=== PATIENT | male | born 1960 | race Caucasian/White ===

== ENCOUNTER 2019-09-30 16:05 | Outpatient (CLI) | payer BC, SELFPAY ==
[2019-09-30 18:39] LABS: Ferritin 159 ng/mL (26-388)
== END 2019-09-30 16:25 ==
PROVIDERS: PCP Nurse Practitioner Family; Visit Provider Nurse Practitioner
DX: M25.50 Pain in unspecified joint (principal)
CPT/HCPCS: 36415; 82728

== ENCOUNTER 2020-05-16 22:01 | Outpatient (REF) | payer BC, SELFPAY ==
[2020-05-16 19:02] LABS: HCT 43.5 % (40.0-50.0); HGB 14.7 g/dL (13.5-17.5); Mean Corp. HGB Concentration 33.8 g/dL (32.0-36.0); Mean Corpuscular Hemoglobin 31.6 pg (27.0-33.0); Mean Corpuscular Volume 93.5 fL (80-95); Mean Platelet Volume 10.5 fL (8.0-11.0); Platelet Count 289 x1000/uL (130-400); RBC 4.65 m/cumm (4.50-6.00); RBC Distribution Width 11.8 % (11.8-14.1); White Blood Cell Count 6.16 k/cumm (4.4-10.8)
[2020-05-16 19:37] LABS: Vitamin D 25 Total 22.3 ng/ml (30-100)
[2020-05-16 19:42] LABS: ALT 24 U/L (16-63); AST 14 U/L (15-37); Albumin 3.9 g/dL (3.4-5.0); Alkaline Phosphatase 73 U/L (46-116); Anion Gap 7.3 mmol/L (3-11); BUN 11 mg/dL (7-18); Bilirubin, Total 0.8 mg/dL (0.2-1.0); CO2 28.7 mmol/L (21.0-32.0); CREATININE 0.91 mg/dL (0.70-1.30); Calcium 8.9 mg/dL (8.5-10.1); Chloride 107 mmol/L (98-107); Glucose 94 mg/dL (74-106); Potassium 5.1 mmol/L (3.5-5.1); Sodium 143 mmol/L (136-145); Total Protein 6.7 g/dL (6.4-8.2); Vitamin B12 202 pg/mL (193-986)
== END 2020-05-16 22:21 ==
LOC: NCHCN 22:01
PROVIDERS: PCP Nurse Practitioner Family; Visit Provider Family Medicine
DX: R22.1 Localized swelling, mass and lump, neck (principal); R53.83 Other fatigue
CPT/HCPCS: 80053; 82306; 85027; 82607

== ENCOUNTER 2020-05-25 02:53 | Outpatient (CLI) | payer BC, SELFPAY ==
--- NOTE | 2020-05-25 | DI.US_ITS ---
EXAM: US THYROID CLINICAL HISTORY: NECK MASS, R22.1, SUSPECT IN THYROID RT LOBE TECHNIQUE: Ultrasound performed using standard protocol. COMPARISON: No exams were available for comparison FINDINGS: Thyroid ultrasounds performed according to the usual protocol. Right thyroid lobe measures 54 x 19 x 20 millimeters. Left thyroid lobe measures 41 x 12 x 16 millimeters. There is mass of the right thyroid lobe measuring 29 x 28 x 25 millimeters. This is mixed cystic and solid in composition and contains areas hyperechoic and hypoechoic solid echogenicity. The lesion is wider than tall has smooth margins and no echogenic foci. Utilizing the ACR TI-RADS guidelines, this is a TR 3 lesion. This is mildly suspicious with fine nee dle aspiration recommended for size greater than 2.5 cm. Accordingly with this lesion measuring 2.9 cm in greatest diameter, FNA is recommended. No other significant lesion identified. IMPRESSION: Fine needle aspiration recommended for TI-RADS TR 3 lesion, 2.9 cm in diameter in the right thyroid l obe. DATA REPOSITORY:
== END 2020-05-25 03:13 ==
PROVIDERS: PCP Nurse Practitioner Family; Visit Provider Family Medicine
DX: R22.1 Localized swelling, mass and lump, neck (principal); E07.9 Disorder of thyroid, unspecified
CPT/HCPCS: 76536

== ENCOUNTER 2020-07-04 16:32 | Outpatient (REF) | payer BC, SELFPAY ==
[2020-07-07 12:50] LABS: Patient Race White; SARS-CoV-2 RNA Undetected (Undetected); SARS-CoV-2 Specimen Source Nasal
== END 2020-07-04 16:52 ==
LOC: NCHCN 16:32
PROVIDERS: PCP Nurse Practitioner Family; Visit Provider Nurse Practitioner Family
DX: Z20.828 Contact with and (suspected) exposure to other viral communicable diseases (principal)
CPT/HCPCS: U0003

== ENCOUNTER 2020-07-27 01:13 | Outpatient (CLI) | payer BC, SELFPAY ==
[2020-07-27 17:11] LABS: TSH (W/Ref FT4) 1.42 uIU/mL (0.36-3.74)
== END 2020-07-27 01:33 ==
PROVIDERS: PCP Nurse Practitioner Family; Visit Provider Otolaryngology
DX: E04.1 Nontoxic single thyroid nodule (principal)
CPT/HCPCS: 36415; 84443

== ENCOUNTER 2020-08-23 18:36 | Outpatient (REF) | payer BC, SELFPAY ==
[2020-08-23 19:21] LABS: Vitamin B12 504 pg/mL (193-986)
[2020-08-25 04:41] LABS: Vitamin D 25 Total 58.7 ng/ml (30-100)
== END 2020-08-23 18:56 ==
LOC: NCHCN 18:36
PROVIDERS: PCP Nurse Practitioner Family; Visit Provider Nurse Practitioner Family
DX: E55.9 Vitamin D deficiency, unspecified (principal); R53.83 Other fatigue
CPT/HCPCS: 82306; 82607

== ENCOUNTER 2021-10-16 16:34 | Outpatient (REF) | payer BC, SELFPAY ==
[2021-10-16 18:32] LABS: HCT 46.2 % (40.0-50.0); HGB 15.5 g/dL (13.5-17.5); MCH 30.7 pg (27.0-33.0); MCHC 33.5 % (32.0-36.0); MCV 91.5 fL (80-95); MPV 10.5 fL (8.0-11.0); Platelet Count 328 10^3/uL (130-400); RBC 5.05 10^6/uL (4.36-5.78); RDW 11.4 % (11.8-14.1); RDW-SD 38.4 fL; WBC 7.67 10^3/uL (4.4-10.8)
[2021-10-16 19:14] LABS: Vitamin D 25 Total 24.4 ng/mL (30-100)
[2021-10-16 19:18] LABS: Vitamin B12 331 pg/mL (193-986)
== END 2021-10-16 16:35 | disposition home or self-care (01) ==
LOC: NCHCN 16:34
PROVIDERS: PCP Nurse Practitioner Family; Visit Provider Family Medicine
DX: E55.9 Vitamin D deficiency, unspecified (principal); E53.8 Deficiency of other specified B group vitamins
CPT/HCPCS: 82306; 85027; 82607

== ENCOUNTER 2023-11-08 18:15 | Outpatient (REF) | payer BC, SELFPAY ==
[2023-11-08 18:54] LABS: Hemoglobin A1C 5.1 % (<5.7)
[2023-11-08 19:17] LABS: Vitamin D 25 Total 31.2 ng/mL (30-100)
[2023-11-08 19:25] LABS: Calculated LDL 103 mg/dL (<100); Cholesterol 204 mg/dL (<200); HDL Cholesterol 48 mg/dL (40-60); TSH (W/Ref FT4) 2.45 uIU/mL (0.36-3.74); Triglyceride 266 mg/dL (<150); Vitamin B12 626 pg/mL (193-986)
== END 2023-11-08 18:16 | disposition home or self-care (01) ==
LOC: NCHCN 18:15
PROVIDERS: PCP Family Medicine; Visit Provider Family Medicine
DX: R53.83 Other fatigue (principal); E53.8 Deficiency of other specified B group vitamins; E55.9 Vitamin D deficiency, unspecified; R79.89 Other specified abnormal findings of blood chemistry; Z13.6 Encounter for screening for cardiovascular disorders; Z13.1 Encounter for screening for diabetes mellitus
CPT/HCPCS: 80061; 82306; 82607; 83036; 84443

== ENCOUNTER 2024-04-12 12:05 | Emergency (ER) | payer BC, SELFPAY ==
[2024-04-12 12:14] VITALS: BP 134/67; PULSE 66; RESP 18; TEMP 37; O2SAT 97
[2024-04-12 12:25] VITALS: RESP 16
[2024-04-12 12:26] VITALS: BP 134/67; PULSE 66; RESP 16; TEMP 37; O2SAT 97
[2024-04-12] MEDS: Lidocaine 2% Multi-Dose 50 ML VIAL (12:30)
--- NOTE | 2024-04-12 13:29 | W.ED.GENAD ---
Discharge Plan Disposition Patient Disposition: Home Condition: Good Discharge Details Clinical Impression: Foreign body in skin of finger of right hand Primary Care Provider: Trang Hearn ED Provider: Steve Husain Home Meds and New Rx's Prescriptions: New cephalexin 500 mg capsule 500 mg PO QID 7 Days Qty: 28 0RF No Action pantoprazole 40 mg tablet,delayed release (DR/EC) 40 mg PO DAILY cholecalciferol (vitamin D3) 50 mcg (2,000 unit) capsule 50 mcg PO DAILY vitamin B complex [B Complex-Vitamin B12] Tablet 1 tab PO DAILY Discharge Instructions Instructions: Foreign Body in Skin ED Additional Instructions: At this time you have evidence of a large splinter that we are able to successfully removed. Please take Tylenol and Motrin as needed for pain. Please take the Keflex as directed to help prevent any infection. Please keep the area dry, do not soak in water. Please change the Band-Aid twice per day. It will take 1 to 2 weeks to heal. If you notice any worsening of your symptoms, or any new symptoms such as vomiting, diarrhea, fever, chills, shortness of breath, chest pain, numbness, weakness, or fainting , please return immediately to the emergency department for reevaluation. Please follow up with your primary care provider as soon as possible for reassessment and reevaluation. As always, it was a pleasure participating in your medical care today. Referrals: Trang Hearn MD [Primary Care Provider] - [facility] General Date/Time Provider Initiated Documentation: 04/12/24 12:20. [facility] Narrative: 64-year-old male with no significant past medical history whose immunizations including tetanus are up-to-date, presents today for evaluation of a splinter in his right index finger in his dominant hand. Patient states that just under 1 week ago he was holding a wooden box, moved his hand and a splinter went all the way into his finger. He was unable to get it out. Over the last few days it has become swollen tender and painful. Minimal drainage. He denies fever or chills. Mild pain is present with movement at the fingertip itself where the splinter is located, but no other components. No other modifying factors. He states his tetanus was updated 5 years ago. Related Data Home Medications Medication Instructions Recorded Confirmed cholecalciferol (vitamin D3) 50 50 mcg PO DAILY 11/26/22 04/12/24 mcg (2,000 unit) capsule pantoprazole 40 mg tablet,delayed 40 mg PO DAILY 11/26/22 04/12/24 release vitamin B complex (B 1 tab PO DAILY 11/26/22 04/12/24 Complex-Vitamin B12 tablet) cephalexin 500 mg capsule 500 mg PO QID 7 days #28 caps 04/12/24 Previous Rx's Medication Instructions Recorded cephalexin 500 mg capsule 500 mg PO QID 7 days #28 caps 04/12/24 Allergies Allergy/AdvReac Type Severity Reaction Status Date / Time lactose Allergy Other (See Verified 04/12/24 12:17 Comment) Eggs Allergy Other (See Uncoded 04/12/24 12:17 Comment) General Stated Complaint: GenMedical GRANT: 4 Review of Systems All systems reviewed & are unremarkable except as noted in HPI and below Exam Narrative Exam Narrative: 1.Const: Well-nourished, Well-developed, appearing stated age 2.Eyes: PERRL, no conjunctival injection, and symmetrical lids. 3.ENT: Atraumatic external nose and ears. Moist MM. Neck: Symmetric, trachea midline, No thyromegaly. 4.CVS: +S1/S2, No murmurs or gallops. Peripheral pulses 2+ and equal in all extremities. Brisk capillary refill in all extremities. 5.RESP: Unlabored respiratory effort. Clear to auscultation bilaterally. No wheezes rales or rhonchi 6.GI: Soft, Nontender/Nondistended, No hepatosplenomegaly. No guarding or rebound. 7.MSK: Normocephalic/Atraumatic, Extremities w/o deformity. No cyanosis or clubbing, Normal movement of all extremities. Patient's right index finger is slightly swollen compared to the others, on the palmar aspect there appears to be an insertion site of a splinter on the lateral aspect of the distal tip of the index finger. No pain with passive flexion or extension in the flexor or extensor tendon. Bedside ultrasound shows evidence of a large splinter roughly 1 to 1.5 cm in diameter 8.Skin: Warm, Dry. No rashes or lesions. 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 Sensation grossly intact, no focal neurologic deficits. 10.Psych: (AAO) x3. Appropriate mood and affect Course Vital Signs Vital signs: Vital Signs Temperature 37.0 C 04/12/24 12:14 Pulse 66 04/12/24 12:14 Respiratory Rate 18 04/12/24 12:14 Blood Pressure 134/67 04/12/24 12:14 Pulse Oximetry 97 04/12/24 12:14 Temperature 37.0 C 04/12/24 12:26 Temperature Source Tympanic 04/12/24 12:26 Pulse 66 04/12/24 12:26 Respiratory Rate 16 04/12/24 12:26 Respiratory Effort Normal 04/12/24 12:25 Respiratory Depth Normal 04/12/24 12:25 Respiratory Pattern Normal 04/12/24 12:25 Blood Pressure 134/67 04/12/24 12:26 Blood Pressure Position Sitting 04/12/24 12:26 Pulse Oximetry 97 04/12/24 12:26 Oxygen Delivery Method Room Air 04/12/24 12:26 Oxygen Flow Rate 0 04/12/24 12:14 Pain Level 4 04/12/24 12:26 Procedures Foreign Body Removal Time Out Performed: yes Site: right and hand (Right index finger) Description of foreign body: other (Splinter) Sedation/Analgesia: other (Lidocaine 2% 3 cc) Technique: manual removal and incision made to facilitate removal Confirmed by:: direct visualization Complications: none Post-procedure exam: awake, alert, normal BP, normal HR and normal O2 sat Neurovascular: normal distal pulse, normal capillary fill, distal light touch sensation intact, distal motor function normal and no signs of compartment syndrome Medical Decision Making 64-year-old male with no significant past medical history whose immunizations including tetanus are up-to-date, presents today for evaluation of a splinter in his right index finger in his dominant hand. Patient states that just under 1 week ago he was holding a wooden box, moved his hand and a splinter went all the way into his finger. He was unable to get it out. Over the last few days it has become swollen tender and painful. Minimal drainage. He denies fever or chills. Mild pain is present with movement at the fingertip itself where the splinter is located, but no other components. No other modifying factors. He states his tetanus was updated 5 years ago. Patient's right index finger is slightly swollen compared to the others, on the palmar aspect there appears to be an insertion site of a splinter on the lateral aspect of the distal tip of the index finger. No pain with passive flexion or extension in the flexor or extensor tendon. Bedside ultrasound shows evidence of a large splinter roughly 1 to 1.5 cm in diameter Decision was made to make a small incision to remove the splinter. Finger was blocked with lidocaine, tourniquet band was applied. A very small 3 mm incision was made, notable amount of pus was removed however the splinter could not be directly visualized. The area was slightly explored with a small amount of skin being removed for further and better visualization. I was able to see the lateral tip of the splinter, and with a slight pull it shot out quite vigorously. The area was washed with chlorhexidine. All pus was exuded. Patient tolerated this well. Small amount of bleeding after tourniquet removal, however this is stopped with bandaging. No evidence of flexor or extensor tenosynovitis. Will start the patient on Keflex for infection treatment secondary to the foreign body. Tetanus is already updated. Will give a small splint for home use. Discussed red flags for which to return. I have extensively reviewed the treatment plan and discharge instructions with the patient. I have addressed all patient concerns at this time. The patient was made aware of what symptoms to monitor for that would warrant a return to the emergency department. Discussed the plan with the patient, they demonstrate verbal understanding and agreement with our assessment and plan at this time. The documentation in this chart was dictated using [email or web address] dictation software. Please excuse any dictation errors. Quality:SDOH Health Related Social Needs: No Data to Display PFSH All Active Problems Foreign body in skin of finger of right hand (Acute) Epistaxis (Acute) Nasal vestibulitis (Acute) Thyroid cyst (Acute) Thyroid nodule (Acute) Medical History Preventative health care IBS (irritable bowel syndrome) Vitamin D deficiency [place] syndrome Fatigue Obstructive sleep apnea History of adenomatous polyp of colon Eosinophilic esophagitis Solitary thyroid nodule Vitamin B12 deficiency Lipoma of shoulder Actinic keratoses Allergic rhinitis Papule Social History Smoking/Tobacco Use Status: Never Smoking risk assessment performed?: Yes Alcohol Intake: never Drug use: Never Substance use type: does not use Do you feel safe at home: Yes Do you feel safe in your relationship?: Yes POCUS Exam (ED) Limited Soft Tissue Exam DATE OF EXAM: 04/12/24 TIME OF EXAM: 16:00 PROVIDER THAT PERFORMED THE STUDY: Steve Husain IS THIS A REPEAT EXAM DURING THIS ENCOUNTER: No LOCATION OF EXAM: Upper extremity/right (Right index finger) REASON FOR EXAM: History of foreign body VISUALIZED STRUCTURES: Fascia, Muscle, Skin and Subcutaneous tissue PERTINENT FINDINGS/IMPRESSION: Foreign body of soft tissue Right distal tip of the index finger . Exam Complete
[2024-04-12] MEDS: Cephalexin 500 MG CAP, 4 CAPS/BTL PO (13:37)
== END 2024-04-12 13:38 | disposition home or self-care (01) ==
PROVIDERS: Emergency Provider Student in an Organized Health Care Education/Training Program; PCP Family Medicine
DX: S60.450A Superficial foreign body of right index finger, initial encounter (principal); W45.8XXA Other foreign body or object entering through skin, initial encounter; Y93.89 Activity, other specified
CPT/HCPCS: 10120; 76882; 99284; J2003

== ENCOUNTER 2024-11-13 17:57 | Outpatient (REF) | payer BC, SELFPAY ==
[2024-11-13 18:38] LABS: HCT 46.2 % (40.0-50.0); HGB 15.6 g/dL (13.5-17.5); MCH 31.2 pg (27.0-33.0); MCHC 33.8 % (32.0-36.0); MCV 92 fL (80-95); MPV 10.6 fL (8.0-11.0); Platelet Count 261 10^3/uL (130-400); RDW 11.5 % (11.8-14.1); RDW-SD 38.9 fL; WBC 7.16 10^3/uL (4.4-10.8)
[2024-11-13 18:49] LABS: Ferritin 184 ng/mL (26-388)
== END 2024-11-13 17:58 | disposition home or self-care (01) ==
LOC: NCHCN 17:57
PROVIDERS: PCP Family Medicine; Visit Provider Family Medicine
DX: R53.83 Other fatigue (principal); G25.81 Restless legs syndrome
CPT/HCPCS: 85027; 82728

== ENCOUNTER 2025-03-01 09:42 | Day surgery (SDC) | payer BC, SELFPAY ==
--- NOTE | 2025-02-28 18:17 | ANES.PREOP_ITS ---
General Info Date of Service Date Performed: 03/01/25 Height: 6 ft 1 in Weight: 93.44 kg Body Mass Index (BMI): 27.1 Surgical Procedure: Operation Date: 03/01/25 11:20 Proposed Procedure Side Surgeon gianluca Quintanilla MD Meds Allergies and Home Medications Allergies Allergy/AdvReac Type Severity Reaction Status Date / Time lactose Allergy Other (See Verified 03/01/25 10:02 Comment) Eggs Allergy Other (See Uncoded 03/01/25 10:02 Comment) Home Medication ?Medication ?Instructions ?Recorded cholecalciferol (vitamin D3) 50 50 mcg PO DAILY 11/26/22 mcg (2,000 unit) capsule pantoprazole 40 mg tablet,delayed 40 mg PO DAILY 11/26/22 release vitamin B complex (B 1 tab PO DAILY 11/26/22 Complex-Vitamin B12 tablet) Saccharomyces boulardii 250 mg 500 mg PO BID 02/05/25 capsule (Daily Probiotic (S. boulardii)) tinidazole 500 mg tablet 500 mg PO DAILY 02/05/25 Current Visit Medications: Current Medications Generic Name Dose Route Start Last Admin Trade Name Freq PRN Reason Stop Dose Admin Ringer's Solution 1,000 mls @ 80 mls/hr 03/01/25 06:00 IV 03/28/25 23:59 INFUSION NAYLA IV Miscellaneous Supplies 1 each 03/01/25 06:00 Iv Access IV 03/28/25 23:59 DIRECTED NAYLA Sodium Chloride 0 ml 03/01/25 06:00 Normal Saline Flush 10 Ml Syr IV 03/28/25 23:59 PRN PRN Sodium Chloride 0 ml 03/01/25 06:00 Normal Saline 10 Ml Vial IJ 03/28/25 23:59 DIRECTED PRN Sterile Water 0 ml 03/01/25 06:00 Water,Injection,Sterile 10 Ml Vial IJ 03/28/25 23:59 DIRECTED PRN PFSH Active Problems Active Problems: Problem Status Onset Code Peripheral vascular disease of lower extremity Acute I73.9 Epistaxis Acute R04.0 Nasal vestibulitis Acute J34.89 Thyroid cyst Acute E04.1 Thyroid nodule Acute E04.1 Medical History Medical History Periodic limb movement disorder Preventative health care IBS (irritable bowel syndrome) Vitamin D deficiency [place] syndrome Fatigue Obstructive sleep apnea Sleep study 2019. Intolerant of CPAP. 10/2023 oral appliance started. History of adenomatous polyp of colon Eosinophilic esophagitis Solitary thyroid nodule Vitamin B12 deficiency Lipoma of shoulder Actinic keratoses Allergic rhinitis Papule Surgical History Surgical History History of colonoscopy 2014, 2019 Tobacco Smoking/Tobacco Use Status: Never Passive smoking exposure: No Alcohol Alcohol Intake: never Substance Use Substance use: Never Substance use type: does not use Vital Signs and Lab Results Vital Signs Most Recent Vital Signs in EMR: Temp Pulse Resp BP Pulse Ox 36.4 C L 66 17 119/68 99 03/01/25 10:14 03/01/25 10:14 03/01/25 10:14 03/01/25 10:14 03/01/25 10:14 Lab Results Blood Type / Crossmatch: No Data to Display Complete Blood Count: No Data to Display Complete Metabolic Panel: No Data to Display Liver Function Panel: No Data to Display Coagulation Panel: No Data to Display Cardiac Panel: No Data to Display Arterial Blood Gas: No Data to Display Venous Blood Gas: No Data to Display Pancreas Panel: No Data to Display Thyroid Panel: No Data to Display Infectious Disease: No Data to Display Blood Cultures: No Data to Display Toxicology Panel: No Data to Display Anesthesia Assessment and Plan Anesthesia History Personal History: No History of Anesthesia Complications Family History: No Family History of Anesthesia Complications Exercise Tolerance Exercise Tolerance: Metabolic Equivalents>4 Cardiac & Pulmonary Exam Cardiac Exam: Normal S1/S2 Heart Sounds Pulmonary Exam: Clear Bilateral Breath Sounds Implantable Cardiac Device Does patient have a Pacemaker or an ICD?: No Airway Exam Known Difficult Airway: No Mallampati Class: 4 Mouth Opening: Narrow (< 3cm) (very limited opening. ) Thyromental Distance: Less than 3 cm Neck Range of Motion: Limited ROM Neck Circumference: Normal Teeth Condition: Normal Dentition ASA Classification ASA Score: ASA 2 Emergency Case?: No NPO Status NPO Status: NPO Clears >2 hours, Solids >8 hours Anesthesia Plan Resuscitation Status: Full Code Anesthesia Technique: General Anesthesia Airway Planned: Natural Airway Monitors Used: Standard Monitors Preoperative Comments:: 65 yo male for colo. Sig PMHx: NEREIDA, esoinophilic esophagitis/gerd (omeprazole).
--- NOTE | 2025-02-28 19:30 | W.PM.DSUDISC ---
Date of service: 03/01/25 Discharge Plan Disposition Patient Disposition: Home Condition: Good Discharge Details Reason For Visit: reening colonoscopy Attending Provider: Louie Quintanilla Primary Care Provider: Trang Hearn Home Meds and New Rx's Prescriptions: Continued pantoprazole 40 mg tablet,delayed release (DR/EC) 40 mg PO DAILY cholecalciferol (vitamin D3) 50 mcg (2,000 unit) capsule 50 mcg PO DAILY vitamin B complex [B Complex-Vitamin B12] Tablet 1 tab PO DAILY Saccharomyces boulardii [Daily Probiotic (S. boulardii)] 250 mg capsule 500 mg PO BID tinidazole 500 mg tablet 500 mg PO DAILY Discontinued bisacodyl [Dulcolax (bisacodyl)] 5 mg tablet,delayed release (DR/EC) 5 mg PO ONCE Qty: 4 0RF Rx Instructions: Take per colonoscopy instructions provided by ordering providers office polyethylene glycol 3350 17 gram/dose powder 17 g PO ONCE Qty: 238 0RF Rx Instructions: Take per colonoscopy instructions provided by ordering providers office Discharge Instructions Instructions: Colon polyps Additional Instructions: Zak is very nice meeting you today, and I hope you feel well after the procedure. Things went very smoothly. Your prep was excellent, and I could see everything fine. I did find, and removed a total of 4 polyps today. All of these were extremely small, and none of them have any features that are particularly worrisome to the naked eye. These polyps will be sent to the pathologist for their review. Colon polyps 2, different varieties, and we use the information from the polyp analysis to help guide future colonoscopy timing. If you need anything, or have any questions at all, please do not hesitate to ask. 1. If tolerated, consume a soft, low fiber diet for 1-2 days. 2[address] Do not drive, drink alcohol, operate machinery, make critical decisions, or do activities that require coordination or balance for 24 hours. 3. Because air was put into your colon during the procedure, expelling air from your rectum (passing gas or farting) is normal. 4. You may not have a bowel movement for 1-3 days because of the colonoscopy prep. This is normal. 5. Go directly to the emergency room if you notice any of the following: Develop chills (warm to touch), or if you have a thermometer and your temperature is above 101 Difficulty breathing or difficultly swallowing Persistent vomiting Severe abdominal pain, other than gas cramps Severe chest pain Black, tarry stools Any bleeding ? exceeding one tablespoon 6. Call your physician if the site where your intravenous was started becomes red, swollen, painful, and warm to touch. 7. Your physician has reviewed your pre-procedure medications. Please continue to take those medications as previously ordered. You will be given specific information/education regarding any changes to your medications before leaving. Activity:: Activity as Tolerated Diet:: As Tolerated Discharge Orders Discharge Orders: Discharge Order (Routine); Ordered 02/28/25 Ordered By: Louie Quintanilla DS: Diagnosis Discharge Diagnosis (1) Encounter for screening colonoscopy: Status: Acute Asessment and Plan: Follow-up on polypectomy results
--- NOTE | 2025-02-28 19:31 | COLE_ITS ---
Date of service: 03/01/25 Time of Service: 12:17 Colonoscopy Report Date of procedure: 03/01/25 Pre-op diagnosis general: screening colonoscopy Post-op diagnosis procedure note: other (Colon polyps) Procedure: colonoscopy with polypectomy Surgeon: Louie Quintanilla Anesthesia Type: General:No Airway Estimated blood loss (mL): 5 Pathology: other (0.25 cm flat polyps at 100, 80, and 55 cm. 0.25 cm flat rectal polyp) Complications: None Disposition: same day Indications: Zak is a 65 year old man with a fmaily history of colon cancer who needs a screening colonoscopy Prep: Miralax/Dulcolax Procedure Start Time: 11:44 Procedure End Time: 12:10 Retraction Time: 14 Findings: 0.25 cm flat polyps at 100, 80, and 55 cm. 0.25 cm flat rectal polyp Procedure Description: After the induction of anesthesia, and with the patient in left lateral decubitus position, I began by performing an external anorectal exam.? Perineum and skin were normal, as was the anal verge.? There was no evidence of external hemorrhoids.? Next, I performed a digital rectal exam.? I did not appreciate any abnormal findings.? Next, I advanced a colonoscope into the rectal vault.? I performed retroflexion.? This appeared normal.? Using insufflation, I then advanced the colonoscope beyond the rectal folds and into the sigmoid colon before advancing towards the cecum.? The quality of the prep was outstanding.? The scope was noted to be in the cecum by identification of the ileocecal valve and appendiceal orifice.? I then began withdrawing the colonoscope using repeated irrigation as necessary for full evaluation of the colonic mucosa. Around 100 cm beyond the anal verge was a 0.25 cm flat polyp. This was removed with cold forceps with minimal bleeding. Similarly, I found flat polyps at 80 and 55 cm from the anal verge. Each of these was about 0.25 cm, and each of these was removed with cold forceps without any issues. Once the scope was withdrawn to the level of the rectum, great care was taken to examine portions of the rectal folds.? In the midportion of the rectal vault was 1 last polyp. This was also about 0.25 cm. This was also flat. This appeared a little more consistent with a hyperplastic polyp, but to be safe, this was also removed with cold forceps. Finally, the scope was withdrawn and the patient was brought to the same-day surgery recovery unit as the anesthetic wore off. ?The findings and instructions were shared with the patient prior to discharge. [place] Bowel Prep [place] Bowel Prep Right Colon: 3 Left Colon: 3 Transverse Colon: 3 Total Score: 9
[2025-03-01 10:14] VITALS: BP 119/68; PULSE 66; RESP 17; TEMP 36.4; O2SAT 99
[2025-03-01 10:28] VITALS: BMI 27.1
[2025-03-01] MEDS: Lactated Ringers 1,000 ML 80 ML IV (10:37)
--- NOTE | 2025-03-01 11:58 | BOWEL_PTH ---
PATIENT: Zak Garcia LOC: [facility] U#:[id number] AGE/SX: 65/M ROOM: RE03/01/[address]: Louie Quintanilla MD : [id number] BED: DIS: 03/01/2025 SPEC #: [id number] RECD: 03/01/25 12:49 STATUS: YONATHAN REQ #: [id number] ESTHER: 03/01/25 11:[address]: Louie Quintanilla DEPT: Surgical Specimen RECD BY: Milly Eagle ENTERED: 03/01/25 12:50 SP TYPE: Bowel OTHR DR: Trang Hearn Tissues: 1 - BIOPSY BOWEL 2 - BIOPSY BOWEL 3 - BIOPSY BOWEL 4 - BIOPSY BOWEL Procedures: GROSS AND MICRO LEVEL 4 Comments: [id number]
[2025-03-01 12:15] VITALS: BP 111/72; PULSE 64; RESP 16; TEMP 36.1; O2SAT 98
--- NOTE | 2025-03-01 12:18 | W.ANESPOSTOP ---
Postoperative Evaluation Date, Time and Location Date Performed: 03/01/25 Time Performed: 12:18 Patient Location: Day Surgery Unit Vital Signs Most Recent Imported Vital Signs: Most Recent Vital Signs Temp Pulse Resp BP Pulse Ox 36.1 C L 64 16 111/72 98 03/01/25 12:15 03/01/25 12:15 03/01/25 12:15 03/01/25 12:15 03/01/25 12:15 Pain Score Most Recent Pain Score: Most Recent Pain Score Pain Level 0 03/01/25 12:15 Assessment Mental Status: Awake (Alert & Oriented to Patient Baseline) Airway and Respiratory Function: Patent airway with normal (patient baseline) respiratory exam Cardiovascular Function: Hemodynamically Stable Hydration Status: Adequately Hydrated Nausea & Vomiting: No Nausea or Vomiting Pain: Pt. Denies Any Pain Peripheral Nerve Block: Patient did not receive a nerve block
[2025-03-01 12:41] VITALS: BP 126/78; PULSE 60; RESP 14; TEMP 36.5; O2SAT 99
== END 2025-03-01 12:55 | disposition home or self-care (01) ==
LOC: SUR 09:43
PROVIDERS: PCP Family Medicine; Visit Provider Surgery
PROC: 0DJD8ZZ Inspection of Lower Intestinal Tract, Via Natural or Artificial Opening Endoscopic (ICD-10-PCS; CPT 45378; principal; 2025-03-01 11:15)
DX: Z12.11 Encounter for screening for malignant neoplasm of colon (principal); Z80.8 Family history of malignant neoplasm of other organs or systems; D12.3 Benign neoplasm of transverse colon; D12.4 Benign neoplasm of descending colon; D12.5 Benign neoplasm of sigmoid colon
CPT/HCPCS: 45380; 88305; J2704

== ENCOUNTER 2025-05-20 02:06 | Outpatient (CLI) | payer BC, SELFPAY ==
--- NOTE | 2025-05-20 | DI.RAD_ITS ---
Exam(s) XR KNEE RT 3V AP,LAT,MOOSE EXAM: XR KNEE RT 3V AP,LAT,MOOSE CLINICAL HISTORY: PAIN RIGHT KNEE M25.561. TECHNIQUE: 2D digital imaging was performed. Three views. COMPARISON: No exams were available for comparison FINDINGS: BONES: No acute fracture is present. No bony destructive lesion is seen. JOINTS: There is mild narrowing of the lateral femoral tibial joint space and mild periarticular spurring. The medial femoral tibial joint is maintained. No joint effusion is seen. SOFT TISSUE: Normal. IMPRESSION: Mild degenerative changes of the right knee. DATA REPOSITORY: RADIATION DOSE DELIVERED:
== END 2025-05-20 02:26 ==
PROVIDERS: PCP Family Medicine; Visit Provider Family Medicine
DX: M25.561 Pain in right knee (principal)
CPT/HCPCS: 73562